=== PATIENT | male | born 1970 | race African-American/Black ===

== ENCOUNTER 2022-08-25 17:32 | Inpatient (IN) ==
[2022-08-25] MEDS ORDERED: ONDANSETRON 4 MG/2 ML VIAL IV PRN (19:50)
[2022-08-25] MEDS ORDERED: ACETAMINOPHEN 325 MG TABLET PO PRN (19:50)
[2022-08-25] MEDS: LACTATED RINGERS 1,000 ML IV SCH (21:27)
[2022-08-25] MEDS: PIPERACILLIN/TAZOBACTAM 3,375 MG in SODIUM CHLORIDE 0.9% 100 ML IV SCH (21:31)
[2022-08-25 23:17] LABS: Basophils % 0.1 % (0.0-0.8); Hematocrit 44.1 VOL% (42.0-52.0); Hemoglobin 15.6 GM/DL (14.0-18.0); Immature Granulocytes % 0.4 %; Immature Granulocytes Absolute 0.07 #; Lymphocytes # 1.1 10*3/uL (1.4-4.0); Lymphocytes % 6.4 % (21.2-54.2); Mean Corpuscular HGB Conc 35.4 GM/DL (32-36); Mean Corpuscular Volume 87.5 FL (87-102); Monocytes # 0.8 10*3/uL (0.11-0.8); Monocytes % 4.7 % (1.7-12.7); Neutrophils % 88.4 % (38.7-73.9); Platelet Count 246 T/CUMM (130-400); Red Blood Count 5.04 MC/CUMM (3.8-5.5); Red Cell Distribution Width 12.9 % (9.3-17.3)
[2022-08-25 23:40] LABS: Bilirubin,Total 0.7 MG/DL (0.20-1.00); Calcium 8.8 MG/DL (8.5-10.1); Osmolality,Calculated 265.7 MOS/KG (273-304); Potassium 4.1 MMOL/L (3.5-5.1); Total Protein 7.8 G/DL (6.4-8.2)
[2022-08-26] MEDS: PIPERACILLIN/TAZOBACTAM 3,375 MG in SODIUM CHLORIDE 0.9% 100 ML IV SCH ×4 (05:15→22:55)
[2022-08-26 05:38] LABS: Basophils % 0.2 % (0.0-0.8); Eosinophils % 0.2 % (0.00-10.9); Hematocrit 46.1 VOL% (42.0-52.0); Hemoglobin 16.1 GM/DL (14.0-18.0); Immature Granulocytes % 0.6 %; Lymphocytes % 5.7 % (21.2-54.2); Mean Corpuscular HGB Conc 34.9 GM/DL (32-36); Mean Corpuscular Volume 88.1 FL (87-102); Monocytes # 0.8 10*3/uL (0.11-0.8); Monocytes % 4.2 % (1.7-12.7); Neutrophils % 89.1 % (38.7-73.9); Platelet Count 201 T/CUMM (130-400); Red Blood Count 5.23 MC/CUMM (3.8-5.5); Red Cell Distribution Width 12.9 % (9.3-17.3)
[2022-08-26 07:04] LABS: Albumin 4.1 G/DL (3.4-5.0); Bilirubin,Total 0.7 MG/DL (0.20-1.00); Osmolality,Calculated 260.9 MOS/KG (273-304); Potassium 3.8 MMOL/L (3.5-5.1); Total Protein 8.5 G/DL (6.4-8.2)
[2022-08-26] MEDS: LACTATED RINGERS 1,000 ML IV SCH ×3 (09:32→19:39)
[2022-08-26] MEDS: PANTOPRAZOLE 40 MG TABLET PO SCH (09:33)
[2022-08-26] MEDS: ENOXAPARIN 40 MG/0.4 ML SYRINGE SUBCUT SCH (15:08)
[2022-08-26] MEDS: ROSUVASTATIN 20 MG TABLET PO SCH (21:05)
[2022-08-26] MEDS: TAMSULOSIN 0.4 MG CAPSULE PO SCH (21:05)
[2022-08-26] MEDS: AMITRIPTYLINE 50 MG TABLET PO SCH (21:05)
[2022-08-26] MEDS: amLODIPine 5 MG TABLET PO SCH (21:05)
[2022-08-26] MEDS: GABAPENTIN 600 MG TABLET PO SCH (21:05)
[2022-08-26] MEDS: tiZANidine 4 MG TABLET PO SCH (21:05)
[2022-08-27] MEDS: LACTATED RINGERS 1,000 ML IV SCH ×2 (02:12→09:19)
[2022-08-27] MEDS: PIPERACILLIN/TAZOBACTAM 3,375 MG in SODIUM CHLORIDE 0.9% 100 ML IV SCH ×3 (04:18→20:46)
[2022-08-27 05:48] LABS: Basophils % 0.2 % (0.0-0.8); Hematocrit 43.5 VOL% (42.0-52.0); Hemoglobin 15.1 GM/DL (14.0-18.0); Immature Granulocytes % 0.4 %; Immature Granulocytes Absolute 0.06 #; Lymphocytes # 0.9 10*3/uL (1.4-4.0); Mean Corpuscular HGB Conc 34.7 GM/DL (32-36); Mean Corpuscular Volume 89.5 FL (87-102); Mean Platelet Volume 10.4 FL (9.6-12.0); Monocytes % 7.3 % (1.7-12.7); Neutrophils % 85.1 % (38.7-73.9); Platelet Count 202 T/CUMM (130-400); Red Blood Count 4.86 MC/CUMM (3.8-5.5); Red Cell Distribution Width 12.8 % (9.3-17.3); White Blood Count 13.5 T/CUMM (4-12)
[2022-08-27 06:10] LABS: Osmolality,Calculated 267.5 MOS/KG (273-304); Potassium 3.7 MMOL/L (3.5-5.1)
[2022-08-27] MEDS: tiZANidine 4 MG TABLET PO SCH ×3 (15:02→20:47)
[2022-08-27] MEDS: GABAPENTIN 600 MG TABLET PO SCH ×3 (15:11→20:47)
[2022-08-27] MEDS: BISOPROLOL 5 MG TABLET PO SCH (15:11)
[2022-08-27] MEDS: ASPIRIN EC 81 MG TABLET PO SCH (15:11)
[2022-08-27] MEDS: ESCITALOPRAM 10 MG TABLET PO SCH (15:12)
[2022-08-27] MEDS: PANTOPRAZOLE 40 MG TABLET PO SCH (15:12)
[2022-08-27] MEDS: AMITRIPTYLINE 50 MG TABLET PO SCH (20:47)
[2022-08-27] MEDS: TAMSULOSIN 0.4 MG CAPSULE PO SCH (20:47)
[2022-08-27] MEDS: amLODIPine 5 MG TABLET PO SCH (20:47)
[2022-08-27] MEDS: ROSUVASTATIN 20 MG TABLET PO SCH (20:47)
[2022-08-28] MEDS: LACTATED RINGERS 1,000 ML IV SCH ×7 (02:05→23:16)
[2022-08-28] MEDS: PIPERACILLIN/TAZOBACTAM 3,375 MG in SODIUM CHLORIDE 0.9% 100 ML IV SCH ×3 (05:10→22:51)
[2022-08-28] MEDS: GABAPENTIN 600 MG TABLET PO SCH ×3 (09:45→20:46)
[2022-08-28] MEDS: tiZANidine 4 MG TABLET PO SCH ×3 (09:45→20:47)
[2022-08-28] MEDS: ASPIRIN EC 81 MG TABLET PO SCH (09:45)
[2022-08-28] MEDS: PANTOPRAZOLE 40 MG TABLET PO SCH (09:45)
[2022-08-28] MEDS: ESCITALOPRAM 10 MG TABLET PO SCH (09:45)
[2022-08-28] MEDS: BISOPROLOL 5 MG TABLET PO SCH (09:45)
[2022-08-28] MEDS: metroNIDAZOLE INJ 500 MG/100 ML PREMIX IV SCH ×2 (13:00→20:47)
[2022-08-28] MEDS: ENOXAPARIN 40 MG/0.4 ML SYRINGE SUBCUT SCH (13:04)
[2022-08-28] MEDS ORDERED: POLYETHYLENE GLYCOL POWDER 255 GM BOTTLE PO ONE (18:00)
[2022-08-28] MEDS ORDERED: BISACODYL 5 MG TABLET PO ONE (18:06)
[2022-08-28] MEDS: ROSUVASTATIN 20 MG TABLET PO SCH (20:46)
[2022-08-28] MEDS: TAMSULOSIN 0.4 MG CAPSULE PO SCH (20:47)
[2022-08-28] MEDS: AMITRIPTYLINE 50 MG TABLET PO SCH (20:47)
[2022-08-28] MEDS: amLODIPine 5 MG TABLET PO SCH (20:47)
[2022-08-29] MEDS: metroNIDAZOLE INJ 500 MG/100 ML PREMIX IV SCH ×3 (05:49→20:08)
[2022-08-29] MEDS: PIPERACILLIN/TAZOBACTAM 3,375 MG in SODIUM CHLORIDE 0.9% 100 ML IV SCH ×3 (06:18→22:00)
[2022-08-29] MEDS: LACTATED RINGERS 1,000 ML IV SCH ×4 (08:58→22:36)
[2022-08-29] MEDS ORDERED: LIDOCAINE 2% 5 ML VIAL ONE (10:31)
[2022-08-29] MEDS ORDERED: propofoL 200 MG/20 ML VIAL IV ONE (10:31)
[2022-08-29] MEDS: GABAPENTIN 600 MG TABLET PO SCH ×3 (11:43→20:09)
[2022-08-29] MEDS: BISOPROLOL 5 MG TABLET PO SCH (11:43)
[2022-08-29] MEDS: ESCITALOPRAM 10 MG TABLET PO SCH (11:43)
[2022-08-29] MEDS: ASPIRIN EC 81 MG TABLET PO SCH (11:43)
[2022-08-29] MEDS: tiZANidine 4 MG TABLET PO SCH ×3 (11:44→20:09)
[2022-08-29] MEDS: PANTOPRAZOLE 40 MG TABLET PO SCH (11:44)
[2022-08-29] MEDS: ENOXAPARIN 40 MG/0.4 ML SYRINGE SUBCUT SCH (14:09)
[2022-08-29] MEDS: amLODIPine 5 MG TABLET PO SCH (20:09)
[2022-08-29] MEDS: TAMSULOSIN 0.4 MG CAPSULE PO SCH (20:09)
[2022-08-29] MEDS: ROSUVASTATIN 20 MG TABLET PO SCH (20:09)
[2022-08-29] MEDS: AMITRIPTYLINE 50 MG TABLET PO SCH (20:09)
[2022-08-30] MEDS: metroNIDAZOLE INJ 500 MG/100 ML PREMIX IV SCH (03:57)
[2022-08-30 05:00] LABS: Basophils # 0.1 10*3/uL (0.0-0.2); Basophils % 0.7 % (0.0-0.8); Eosinophils # 0.2 10*3/uL (0.0-0.87); Eosinophils % 2.1 % (0.00-10.9); Hematocrit 37.3 VOL% (42.0-52.0); Hemoglobin 13.4 GM/DL (14.0-18.0); Immature Granulocytes % 0.7 %; Immature Granulocytes Absolute 0.05 #; Lymphocytes # 2.1 10*3/uL (1.4-4.0); Lymphocytes % 29.2 % (21.2-54.2); Mean Corpuscular HGB Conc 35.9 GM/DL (32-36); Mean Corpuscular Volume 87.8 FL (87-102); Mean Platelet Volume 10.5 FL (9.6-12.0); Neutrophils % 54.3 % (38.7-73.9); Platelet Count 214 T/CUMM (130-400); Red Blood Count 4.25 MC/CUMM (3.8-5.5); Red Cell Distribution Width 12.8 % (9.3-17.3); White Blood Count 7.3 T/CUMM (4-12)
[2022-08-30] MEDS: PIPERACILLIN/TAZOBACTAM 3,375 MG in SODIUM CHLORIDE 0.9% 100 ML IV SCH (05:05)
[2022-08-30 05:23] LABS: Calcium 8.4 MG/DL (8.5-10.1); Osmolality,Calculated 272.8 MOS/KG (273-304); Potassium 3.7 MMOL/L (3.5-5.1)
[2022-08-30 07:40] VITALS: BP 109/70
[2022-08-30] MEDS: BISOPROLOL 5 MG TABLET PO SCH (08:12)
[2022-08-30] MEDS: GABAPENTIN 600 MG TABLET PO SCH (08:13)
[2022-08-30] MEDS: ASPIRIN EC 81 MG TABLET PO SCH (08:13)
[2022-08-30] MEDS: tiZANidine 4 MG TABLET PO SCH (08:13)
[2022-08-30] MEDS: ESCITALOPRAM 10 MG TABLET PO SCH (08:14)
[2022-08-30] MEDS: PANTOPRAZOLE 40 MG TABLET PO SCH (08:14)
[2022-08-30] MEDS: LACTATED RINGERS 1,000 ML IV SCH ×2 (10:45→10:46)
== END 2022-08-30 11:26 | disposition home or self-care (01) | DRG 389 ==
LOC: N.ED 17:32 → N.5E 19:50
PROVIDERS: ADMIT Student in an Organized Health Care Education/Training Program; ATTEND Student in an Organized Health Care Education/Training Program
PROC: COLONBX (2022-08-29 11:05)